=== PATIENT | female | born 1950 ===

== ENCOUNTER → 2022-04-13 07:27 | Outpatient (CLI) | payer MEDICARE, SELFPAY ==
[2022-04-13 20:15] LABS: COVID19 - ORCAS (NP or Nasal) Negative (Negative)
== END ==
PROVIDERS: Visit Provider Family Medicine
DX: Z20.822 Contact with and (suspected) exposure to COVID-19 (principal); Z01.812 Encounter for preprocedural laboratory examination
CPT/HCPCS: C9803; U0003